=== PATIENT | male | born 1955 | race Two or more races ===

== ENCOUNTER → 2016-12-26 | Outpatient (REF) | payer MEDICAID | LOC: M SFHCADAM 14:30 | PROVIDERS: ATTEND Family Medicine | DX: J69.0 Pneumonitis due to inhalation of food and vomit (principal); I95.2 Hypotension due to drugs; R63.4 Abnormal weight loss ==

== ENCOUNTER → 2016-12-27 | Outpatient (CLI) | payer MEDICAID ==
[~2016-12-27] MED LIST: ISOVUE-370 76% 100ML VIAL (Q9967) As Ordered ONE
[2016-12-27 11:31] LABS: MEAN CORPUSCULAR HEMOGLOBIN 31.9 pg (27.0-33.0); MEAN CORPUSCULAR VOLUME 93.7 fl (80.0-96.0); RED CELL DISTRIBUTION WIDTH 14.7 % (11.5-14.5); WHITE BLOOD COUNT 4.6 K/mm3 (4.0-10.0)
[2016-12-27 11:59] LABS: CORTISOL AM 8.7 UG/DL (4.3-22.4)
[2016-12-27 12:06] LABS: BLOOD UREA NITROGEN 6 MG/DL (7-18); CREATININE FOR GFR 0.89 MG/DL (0.70-1.30); GLUCOSE, FASTING 77 MG/DL (80-110)
[2016-12-27 12:07] LABS: ALBUMIN 3.1 GM/DL (3.2-5.2); ALBUMIN/GLOBULIN RATIO 0.94 (1.00-1.93); ALKALINE PHOSPHATASE 52 U/L (45-117); ALT/SGPT 16 U/L (12-78); ANION GAP 7 MEQ/L (8-16); AST/SGOT 13 U/L (15-37); BILIRUBIN,TOTAL 0.2 MG/DL (0.2-1.0); CALCIUM LEVEL 8.8 MG/DL (8.8-10.2); CARBON DIOXIDE LEVEL 29 MEQ/L (21-32); CHLORIDE LEVEL 104 MEQ/L (98-107); FREE T4 0.77 NG/DL (0.76-1.46); GLOMERULAR FILTRATION RATE > 60.0 (>49); POTASSIUM SERUM 4.7 MEQ/L (3.5-5.1); SODIUM LEVEL 140 MEQ/L (136-145); TOTAL PROTEIN 6.4 GM/DL (6.4-8.2)
--- NOTE | 2016-12-27 13:11 | REP ---
CT of the chest with IV contrast for aspiration pneumonia: There are no comparison studies. There are no focal infiltrates that would indicate aspiration. There are several contiguous lung nodules posteriorly in the right upper lobe measuring eight - 11 mm in size. No other lung nodules or masses are identified. No pleural effusions. There is dependent atelectasis in the posterior lung escobar inferiorly. There is a air in the lumen of the mid and upper esophagus. This is nonspecific but may in the appropriate clinical context could represent obstruction or partial obstruction of the distal esophagus. Additionally there is a 1.9 cm soft tissue mass-like density in the subcarinal zone, nonspecific. This could represent subcarinal nodes or esophageal mass. Barium esophagram might be considered for followup evaluation. There is no other mediastinal adenopathy. There is no hilar adenopathy. No axillary adenopathy. The thoracic aorta is unremarkable. Cardiac size is normal. There is no pericardial effusion. In the upper abdomen the visualized portions of the liver, gallbladder, pancreas and spleen are unremarkable except for two nonspecific 1 cm diameter low density lesions in the left lobe of the liver., likely hepatic cysts. Impression: No evidence of aspiration. There are several confluent nodular densities posteriorly in the right upper lobe concerning for neoplasm. There is air in the mid and upper esophagus. This is nonspecific but in the appropriate clinical context can suggest obstruction or partial obstruction of the mid and distal esophagus. There is a soft tissue density in the subcarinal area which could represent adenopathy or possibly an esophageal mass. Consider barium esophagram for further evaluation. Signed by Jean Pierre Casper MD 12/27/2016 01:02 P
== END ==
LOC: M LAB 10:28 → M RAD 10:28
PROVIDERS: ATTEND Family Medicine
DX: R91.8 Other nonspecific abnormal finding of lung field (principal); J69.0 Pneumonitis due to inhalation of food and vomit; I95.2 Hypotension due to drugs; R63.4 Abnormal weight loss
CPT/HCPCS: 36415; 71260; 80053; 82533; 84439; 84443; 85027; Q9967

== ENCOUNTER → 2017-01-23 | Outpatient (CLI) | payer MEDICAID ==
[~2017-01-23] MED LIST changes: +E-Z-GAS II EFFERVESCENT PACKET (SODIUM BICARB./CITRIC ACID/SIMETHICONE) As Ordered ONE; +E-Z-HD 98% w/w 340GM SUSP BTL As Ordered ONE; +E-Z-PAQUE 96% w/w SUSP 176GM BTL As Ordered ONE; -ISOVUE-370 76% 100ML VIAL (Q9967) As Ordered ONE
--- NOTE | 2017-01-23 18:58 | REP ---
ESOPHAGUS: The procedure was performed by KAITLIN Tamayo under the direct supervision of Dr. Oconnor. All imaging was reviewed with Dr. Oconnor prior to dictation. The patient was able to ingest liquid barium in order to evaluate the swallowing mechanism. Significant penetration was seen on the first swallows of barium. Procedure was terminated after this was seen. Recommend a swallowing evaluation with speech pathology. Fluoroscopy time was 23 seconds. Reviewed by KAITLIN Chang 01/24/2017 10:47 AEdited and Signed by Jean Pierre Oconnor MD 01/24/2017 04:35 P
== END ==
LOC: M RAD 09:28
PROVIDERS: ATTEND Family Medicine
DX: R13.10 Dysphagia, unspecified (principal)

== ENCOUNTER 2021-04-18 22:02 | Inpatient (IN) | payer MEDICARE, MEDICAID, OTHER ==
[~2021-04-18] VITALS: Ht 152.4 cm; Wt 65.2 kg
[2021-04-19] VITALS (84 sets, daily range): BP systolic 65–182; BP diastolic 33–71
[2021-04-19] MEDS ORDERED: NS 1,000 ML IV ONE ×2 (03:35→06:30)
[2021-04-19 03:50] LABS: HEMATOCRIT 37.6 % (42.0-52.0); HEMOGLOBIN 11.8 g/dl (13.5-17.5); MEAN CORPUSCULAR HEMOGLOBIN 28.1 pg (27.0-33.0); MEAN CORPUSCULAR HGB CONC 31.4 g/dl (32.0-36.5); MEAN CORPUSCULAR VOLUME 89.5 fl (80.0-96.0); PLATELET COUNT, AUTOMATED 149 10^3/uL (150-450); WHITE BLOOD COUNT 11.6 10^3/uL (4.0-10.0)
[2021-04-19] MEDS ORDERED: PIPERACILLIN/TAZOBACTAM SOD 3.375 GM in D5W MINI-BAG PLUS 50 ML IV ONE (04:10)
[2021-04-19 04:16] LABS: ALBUMIN 2.3 GM/DL (3.2-5.2); ALT/SGPT 13 U/L (12-78); BILIRUBIN,DIRECT < 0.1 MG/DL (0.0-0.2); BILIRUBIN,TOTAL 0.3 MG/DL (0.2-1.0); BLOOD UREA NITROGEN 17 MG/DL (7-18); CALCIUM LEVEL 9.2 MG/DL (8.8-10.2); CARBON DIOXIDE LEVEL 23 MEQ/L (21-32); CHLORIDE LEVEL 105 MEQ/L (98-107); CK-MB VALUE MASS 8.7 NG/ML (<3.6); CREATININE FOR GFR 2.57 MG/DL (0.70-1.30); GLOMERULAR FILTRATION RATE 26.7 (>49); GLUCOSE, FASTING 124 MG/DL (70-100); MB/CK RELATIVE INDEX 1.83 (< OR =4); NT-PRO BNP 8637 PG/ML (<125); POTASSIUM SERUM 4.2 MEQ/L (3.5-5.1); SODIUM LEVEL 141 MEQ/L (136-145); TOTAL PROTEIN 6.3 GM/DL (6.4-8.2); TROPONIN I 0.04 NG/ML (< 0.10); VALPROIC ACID (DEPAKOTE) 70.8 UG/ML (50.0-100.0)
[2021-04-19 04:26] LABS: LYMPHOCYTES 14 % (16-44); METAMYELOCYTES 2 % (0-0); MONOCYTES 5 % (0-5); NEUTROPHILS 64 % (28-66); PLATELET ESTIMATE NORMAL (NORMAL)
[2021-04-19] MEDS ORDERED: KETAMINE HCL 200 MG/20 ML VIAL IV ONE (05:40)
[2021-04-19] MEDS ORDERED: NOREPINEPHRINE BITARTRATE 8 MG in D5W 492 ML IV SCH (06:15)
[2021-04-19 06:39] LABS: VENOUS BASE EXCESS -6.7 (-2.0-2.0); VENOUS HCO3 20.7 MEQ/L (23.0-27.0); VENOUS PARTIAL PRESSURE CO2 49.5 mmHg (38.0-50.0); VENOUS STANDARD HCO3 18.3 MEQ/L; VENOUS TOTAL CO2 22.3 MEQ/L (24.0-28.0)
[2021-04-19] MEDS ORDERED: MONT10TA97 PO (07:17)
[2021-04-19] MEDS ORDERED: DEPA1TAB3 PO (07:17)
[2021-04-19] MEDS ORDERED: BACL10TA2 PO (07:17)
[2021-04-19] MEDS ORDERED: OMEP40CA4 PO (07:17)
[2021-04-19] MEDS ORDERED: LEVO75TA4 PO (07:17)
[2021-04-19] MEDS ORDERED: SENN-80 PO (07:17)
[2021-04-19] MEDS ORDERED: RISP-7 PO (07:17)
[2021-04-19] MEDS ORDERED: ACIDTAB4 PO (07:17)
[2021-04-19] MEDS ORDERED: ECOT81TA5 PO (07:17)
[2021-04-19] MEDS ORDERED: PARO20TA4 PO (07:17)
[2021-04-19] MEDS ORDERED: COMBAER6 INH (07:18)
[2021-04-19] MEDS ORDERED: HOME MED LIST COMPLETE! XX SCH (07:20)
[2021-04-19] MEDS ORDERED: DIVALPROEX 500 MG TAB PO SCH (09:00)
[2021-04-19 09:08] LABS: INR 1.26; PARTIAL THROMBOPLASTIN TIME 36.9 SECONDS (25.9-37.0); PROTHROMBIN TIME 16.2 SECONDS (12.7-14.5)
[2021-04-19 09:15] LABS: HEMATOCRIT 37.5 % (42.0-52.0); HEMOGLOBIN 11.6 g/dl (13.5-17.5); MEAN CORPUSCULAR HGB CONC 30.9 g/dl (32.0-36.5); MEAN CORPUSCULAR VOLUME 90.4 fl (80.0-96.0); PLATELET COUNT, AUTOMATED 171 10^3/uL (150-450); RED BLOOD COUNT 4.15 10^6/uL (4.30-6.10); WHITE BLOOD COUNT 4.3 10^3/uL (4.0-10.0)
[2021-04-19 09:28] LABS: CALCIUM LEVEL 8.3 MG/DL (8.8-10.2); CREATININE FOR GFR 2.41 MG/DL (0.70-1.30); GLOMERULAR FILTRATION RATE 28.8 (>49); POTASSIUM SERUM 3.7 MEQ/L (3.5-5.1)
[2021-04-19 09:32] LABS: ABG BASE EXCESS -9.5 (-2.0-2.0); ABG HCO3 16.4 MEQ/L (22.0-26.0); ABG O2 SATURATION 89.2 % (95.0-99.0); ABG PARTIAL PRESSURE CO2 35.7 mmHg (35.0-45.0); ABG PARTIAL PRESSURE O2 64.2 mmHg (75.0-100.0); ABG STANDARD HCO3 16.8 MEQ/L (22.0-26.0); ABG TOTAL CO2 17.5 MEQ/L (23.0-31.0)
[2021-04-19] MEDS ORDERED: FUROSEMIDE 100MG/10ML VIAL (J1940) IV ONE (10:00)
[2021-04-19 10:03] LABS: ATYPICAL LYMPH 2 % (0-5); LYMPHOCYTES 16 % (16-44); MONOCYTES 4 % (0-5); NEUTROPHILS 46 % (28-66); PLATELET CLUMPS MODERATE AMT; PLATELET ESTIMATE NORMAL (NORMAL)
[2021-04-19 10:06] LABS: TOXIC GRANULATION 1+
[2021-04-19 10:07] LABS: TOXIC VACUOLATION 1+
[2021-04-19 10:08] LABS: HYPOCHROMASIA 1+
[2021-04-19] MEDS ORDERED: MIDAZOLAM INJ 2MG/2ML VIAL (J2250 PER 1MG) As Ordered ONE (10:10)
[2021-04-19] MEDS ORDERED: ROCURONIUM BROMIDE 50 MG/5 ML VIAL As Ordered ONE (10:10)
[2021-04-19] MEDS ORDERED: ETOMIDATE INJ 20MG/10ML VIAL As Ordered ONE (10:10)
[2021-04-19] MEDS ORDERED: ROCURONIUM BROMIDE 50 MG/5 ML VIAL IV ONE (10:40)
[2021-04-19] MEDS ORDERED: ETOMIDATE INJ 20MG/10ML VIAL IV ONE (10:40)
[2021-04-19] MEDS ORDERED: MIDAZOLAM INJ 2MG/2ML VIAL (J2250 PER 1MG) IV ONE (10:40)
[2021-04-19] MEDS ORDERED: SENNA 8.6 MG TAB (SENOKOT) PO PRN (10:40)
[2021-04-19] MEDS ORDERED: REFRIGERATOR IV KEYS XX PRN (10:40)
[2021-04-19 11:30] LABS: ABG HCO3 15.8 MEQ/L (22.0-26.0); ABG O2 SATURATION 94.7 % (95.0-99.0); ABG PARTIAL PRESSURE CO2 42.9 mmHg (35.0-45.0); ABG STANDARD HCO3 15.1 MEQ/L (22.0-26.0); ABG TOTAL CO2 17.1 MEQ/L (23.0-31.0)
[2021-04-19] MEDS: HEPARIN SOD (PORCINE) 5000UNITS/ML 1ML VIAL/SYRINGE SC SCH ×2 (11:33→20:53)
[2021-04-19 11:34] LABS: ABG pH (ARTERIAL) 7.184 UNITS (7.350-7.450)
[2021-04-19] MEDS: NOREPINEPHRINE BITARTRATE 16 MG in D5W 484 ML IV SCH (11:43)
[2021-04-19] MEDS: MIDAZOLAM INJ 2MG/2ML VIAL (J2250 PER 1MG) IV PRN ×2 (12:03→12:56)
[2021-04-19] MEDS: MIDAZOLAM HCL 100 MG in D5W 80 ML IV SCH (12:50)
[2021-04-19] MEDS: fentaNYL 100 MCG/2 ML INJECTION IV PRN (13:20)
[2021-04-19] MEDS ORDERED: VALPROATE SOD INJ 500 MG in D5W MINI-BAG PLUS 50 ML IV SCH (14:00)
[2021-04-19 14:22] LABS: COMPLEMENT C3 93 MG/DL (90-180); COMPLEMENT C4 21 MG/DL (10-40); TOTAL PROTEIN 5.6 GM/DL (6.4-8.2)
[2021-04-19] MEDS: PARoxetine 20MG TABLET NG SCH (14:33)
[2021-04-19] MEDS: risperiDONE 0.5 MG TAB NG SCH ×2 (14:34→20:52)
[2021-04-19] MEDS: PANTOPRAZOLE 40MG VIAL (C9113 PER 1) IV SCH (14:34)
[2021-04-19] MEDS: PIPERACILLIN/TAZOBACTAM SOD 2.25 GM in D5W MINI-BAG PLUS 50 ML IV SCH ×2 (14:34→18:56)
[2021-04-19] MEDS: VASOPRESSIN INJ 20 UNITS in NS 499 ML IV SCH ×2 (15:02→22:37)
[2021-04-19 17:41] LABS: CALCIUM LEVEL 8.8 MG/DL (8.8-10.2); CREATININE FOR GFR 2.53 MG/DL (0.70-1.30); GLOMERULAR FILTRATION RATE 27.2 (>49); POTASSIUM SERUM 3.6 MEQ/L (3.5-5.1)
[2021-04-19] MEDS: VALPROATE SOD INJ 500 MG in D5W 50 ML IV SCH (18:55)
[2021-04-19 18:56] LABS: ABG BASE EXCESS -11.5 (-2.0-2.0); ABG HCO3 14.5 MEQ/L (22.0-26.0); ABG O2 SATURATION 89.9 % (95.0-99.0); ABG PARTIAL PRESSURE O2 64.9 mmHg (75.0-100.0); ABG STANDARD HCO3 15.3 MEQ/L (22.0-26.0); ABG TOTAL CO2 15.5 MEQ/L (23.0-31.0)
[2021-04-19] MEDS: HYDROCORTISONE 100 MG/2 ML VIAL (J1720 PER 1) IV SCH ×2 (18:56→20:52)
[2021-04-19] MEDS ORDERED: PHENYLEPHRINE HCL INJ 50 MG in D5W 495 ML IV SCH (19:00)
[2021-04-19] MEDS: HEPARIN 100 UNIT/ML *20ML* SYRINGE CRRT INFUSION CRRT SCH (19:24)
[2021-04-19 19:36] LABS: HEPATITIS B CORE ANTIBODY IGM NEGATIVE (NEGATIVE); HEPATITIS B SURFACE ANTIBODY POSITIVE (POSITIVE); HEPATITIS B SURFACE ANTIGEN NEGATIVE (NEGATIVE); HEPATITIS C VIRUS ABY INDEX 0.1 INDEX (<0.8)
[2021-04-19] MEDS: CHLORHEXIDINE GLUCONATE 0.12 % 15ML UDC (PERIDEX ORAL RINSE) MT SCH (20:52)
[2021-04-19] MEDS ORDERED: EPINEPHrine HCL INJ 1 MG in D5W 240 ML IV SCH (22:00)
[2021-04-20] VITALS (95 sets, daily range): BP systolic 66–204; BP diastolic 26–78
[2021-04-20] MEDS: HEPARIN 100 UNIT/ML *20ML* SYRINGE CRRT INFUSION CRRT SCH ×4 (00:24→15:10)
[2021-04-20] MEDS: PIPERACILLIN/TAZOBACTAM SOD 2.25 GM in D5W MINI-BAG PLUS 50 ML IV SCH ×4 (00:35→18:08)
[2021-04-20] MEDS ORDERED: SODIUM CHLORIDE 0.9% INJ 10 ML SYR IV PRN (01:20)
[2021-04-20] MEDS: HYDROCORTISONE 100 MG/2 ML VIAL (J1720 PER 1) IV SCH ×4 (03:06→21:18)
[2021-04-20] MEDS: VALPROATE SOD INJ 500 MG in D5W 50 ML IV SCH ×2 (03:07→17:07)
[2021-04-20 04:30] LABS: HEMATOCRIT 35.1 % (42.0-52.0); HEMOGLOBIN 10.7 g/dl (13.5-17.5); MEAN CORPUSCULAR HGB CONC 30.5 g/dl (32.0-36.5); MEAN CORPUSCULAR VOLUME 91.9 fl (80.0-96.0); PLATELET COUNT, AUTOMATED 127 10^3/uL (150-450); RED BLOOD COUNT 3.82 10^6/uL (4.30-6.10)
[2021-04-20] MEDS: NOREPINEPHRINE BITARTRATE 16 MG in D5W 484 ML IV SCH ×2 (04:44→16:56)
[2021-04-20 04:49] LABS: CALCIUM LEVEL 7.6 MG/DL (8.8-10.2); CREATININE FOR GFR 1.82 MG/DL (0.70-1.30); GLOMERULAR FILTRATION RATE 39.8 (>49); MAGNESIUM LEVEL 1.7 MG/DL (1.8-2.4); PHOSPHORUS LEVEL 4.2 MG/DL (2.5-4.9); POTASSIUM SERUM 3.9 MEQ/L (3.5-5.1)
[2021-04-20] MEDS: LEVOTHYROXINE 75MCG TABLET (0.075MG) NG SCH (05:23)
[2021-04-20] MEDS: CALCIUM GLUCONATE 1,000 MG in D5W MINI-BAG PLUS 100 ML IV SCH ×4 (05:23→21:19)
[2021-04-20 06:10] LABS: ABG BASE EXCESS -13.7 (-2.0-2.0); ABG HCO3 13.8 MEQ/L (22.0-26.0); ABG O2 SATURATION 98.9 % (95.0-99.0); ABG PARTIAL PRESSURE CO2 38.3 mmHg (35.0-45.0); ABG PARTIAL PRESSURE O2 167.7 mmHg (75.0-100.0); ABG STANDARD HCO3 13.9 MEQ/L (22.0-26.0)
[2021-04-20 06:14] LABS: ABG pH (ARTERIAL) 7.176 UNITS (7.350-7.450)
[2021-04-20] MEDS: VASOPRESSIN INJ 20 UNITS in NS 499 ML IV SCH ×3 (06:16→21:54)
[2021-04-20] MEDS ORDERED: MAG SULF 1GM/100ML (MAG RUN) 1 GM in IV 1 EA IV ONE (07:00)
[2021-04-20] MEDS ORDERED: KCL 20MEQ IN 100ML SWI (KRUN) 20 MEQ in IV 1 EA IV ONE ×2 (08:00)
[2021-04-20] MEDS: risperiDONE 0.5 MG TAB NG SCH ×2 (08:04→21:18)
[2021-04-20] MEDS: PANTOPRAZOLE 40MG VIAL (C9113 PER 1) IV SCH (08:04)
[2021-04-20] MEDS: CHLORHEXIDINE GLUCONATE 0.12 % 15ML UDC (PERIDEX ORAL RINSE) MT SCH ×2 (08:04→21:18)
[2021-04-20] MEDS: PARoxetine 20MG TABLET NG SCH (09:00)
[2021-04-20] MEDS: MIDAZOLAM HCL 100 MG in D5W 80 ML IV SCH (10:42)
[2021-04-20] MEDS ORDERED: SODIUM BICARBONATE 150 MEQ in D5W 1,000 ML IV SCH (11:00)
[2021-04-20 18:07] LABS: HEMATOCRIT 31.6 % (42.0-52.0); MEAN CORPUSCULAR HEMOGLOBIN 27.7 pg (27.0-33.0); MEAN CORPUSCULAR HGB CONC 31.6 g/dl (32.0-36.5); MEAN CORPUSCULAR VOLUME 87.5 fl (80.0-96.0); RED BLOOD COUNT 3.61 10^6/uL (4.30-6.10); WHITE BLOOD COUNT 11.6 10^3/uL (4.0-10.0)
[2021-04-20 18:23] LABS: INR 1.41; PROTHROMBIN TIME 17.7 SECONDS (12.7-14.5)
[2021-04-20 18:24] LABS: BLOOD UREA NITROGEN 9 MG/DL (7-18); CALCIUM LEVEL 7.4 MG/DL (8.8-10.2); CARBON DIOXIDE LEVEL 22 MEQ/L (21-32); CHLORIDE LEVEL 102 MEQ/L (98-107); CREATININE FOR GFR 0.86 MG/DL (0.70-1.30); GLOMERULAR FILTRATION RATE > 60.0 (>49); GLUCOSE, FASTING 202 MG/DL (70-100); PARTIAL THROMBOPLASTIN TIME 63.8 SECONDS (25.9-37.0); PHOSPHORUS LEVEL 2.2 MG/DL (2.5-4.9); POTASSIUM SERUM 4.1 MEQ/L (3.5-5.1); SODIUM LEVEL 136 MEQ/L (136-145)
[2021-04-20 18:55] LABS: PLATELET COUNT, AUTOMATED 80 10^3/uL (150-450)
[2021-04-20] MEDS ORDERED: HEPARIN 100 UNIT/ML *20ML* SYRINGE CRRT INFUSION CRRT SCH (19:00)
[2021-04-20] MEDS: NS 1,000 ML IV SCH (19:18)
[2021-04-20] MEDS: fentaNYL 100 MCG/2 ML INJECTION IV PRN (20:11)
[2021-04-21] VITALS (55 sets, daily range): BP systolic 86–129; BP diastolic 44–71
[2021-04-21] MEDS: VALPROATE SOD INJ 500 MG in D5W 50 ML IV SCH ×2 (03:49→15:18)
[2021-04-21] MEDS: HYDROCORTISONE 100 MG/2 ML VIAL (J1720 PER 1) IV SCH ×4 (03:49→20:54)
[2021-04-21] MEDS: MIDAZOLAM INJ 2MG/2ML VIAL (J2250 PER 1MG) IV PRN (04:02)
[2021-04-21 04:54] LABS: HEMATOCRIT 26.4 % (42.0-52.0); HEMOGLOBIN 8.6 g/dl (13.5-17.5); MEAN CORPUSCULAR HEMOGLOBIN 28.2 pg (27.0-33.0); MEAN CORPUSCULAR HGB CONC 32.6 g/dl (32.0-36.5); MEAN CORPUSCULAR VOLUME 86.6 fl (80.0-96.0); RED BLOOD COUNT 3.05 10^6/uL (4.30-6.10); WHITE BLOOD COUNT 12.9 10^3/uL (4.0-10.0)
[2021-04-21 04:59] LABS: PLATELET COUNT, AUTOMATED 60 10^3/uL (150-450)
[2021-04-21 05:13] LABS: BLOOD UREA NITROGEN 9 MG/DL (7-18); CALCIUM LEVEL 7.6 MG/DL (8.8-10.2); CARBON DIOXIDE LEVEL 23 MEQ/L (21-32); CHLORIDE LEVEL 105 MEQ/L (98-107); CREATININE FOR GFR 0.88 MG/DL (0.70-1.30); GLOMERULAR FILTRATION RATE > 60.0 (>49); GLUCOSE, FASTING 164 MG/DL (70-100); MAGNESIUM LEVEL 1.6 MG/DL (1.8-2.4); PHOSPHORUS LEVEL 1.4 MG/DL (2.5-4.9); POTASSIUM SERUM 4.5 MEQ/L (3.5-5.1); SODIUM LEVEL 136 MEQ/L (136-145)
[2021-04-21] MEDS: PIPERACILLIN/TAZOBACTAM SOD 2.25 GM in D5W MINI-BAG PLUS 50 ML IV SCH ×3 (05:46)
[2021-04-21] MEDS: fentaNYL 100 MCG/2 ML INJECTION IV PRN (05:46)
[2021-04-21] MEDS: LEVOTHYROXINE 75MCG TABLET (0.075MG) NG SCH (05:46)
[2021-04-21 06:02] LABS: ABG BASE EXCESS -2.6 (-2.0-2.0); ABG HCO3 20.7 MEQ/L (22.0-26.0); ABG O2 SATURATION 93.9 % (95.0-99.0); ABG PARTIAL PRESSURE CO2 30.4 mmHg (35.0-45.0); ABG STANDARD HCO3 22.3 MEQ/L (22.0-26.0); ABG TOTAL CO2 21.7 MEQ/L (23.0-31.0); ABG pH (ARTERIAL) 7.452 UNITS (7.350-7.450)
[2021-04-21] MEDS ORDERED: MIDAZOLAM HCL 100 MG in D5W 80 ML IV SCH (06:20)
[2021-04-21] MEDS: MIDAZOLAM HCL 100 MG in D5W 80 ML IV SCH (07:24)
[2021-04-21] MEDS: NOREPINEPHRINE BITARTRATE 16 MG in D5W 484 ML IV SCH ×2 (08:50→08:55)
[2021-04-21] MEDS: PANTOPRAZOLE 40MG VIAL (C9113 PER 1) IV SCH (08:51)
[2021-04-21] MEDS: CHLORHEXIDINE GLUCONATE 0.12 % 15ML UDC (PERIDEX ORAL RINSE) MT SCH ×2 (08:52→20:53)
[2021-04-21] MEDS: risperiDONE 0.5 MG TAB NG SCH ×2 (08:54→20:56)
[2021-04-21 09:27] LABS: BASOPHILS 1 % (0-1); LYMPHOCYTES 8 % (16-44); MONOCYTES 12 % (0-5); NEUTROPHILS 65 % (28-66)
[2021-04-21 09:28] LABS: TOXIC GRANULATION 2+; TOXIC VACUOLATION 2+
[2021-04-21 09:29] LABS: ANISOCYTOSIS 1+; HYPOCHROMASIA 2+; PLATELET ESTIMATE MARKED DECREASE (NORMAL)
[2021-04-21] MEDS ORDERED: MAG SULF 1GM/100ML (MAG RUN) 1 GM in IV 1 EA IV ONE ×2 (11:00→12:00)
[2021-04-21 11:52] LABS: ALBUMIN 2.65 GM/DL (3.29-5.55); ALBUMIN % 47.4 % (55.8-66.1); ALPHA-1-GLOBULIN % 7.2 % (2.9-4.9); ALPHA-2-GLOBULINS % 10.8 % (7.1-11.8); BETA-1-GLOBULINS 0.42 GM/DL (0.28-0.60); BETA-1-GLOBULINS % 7.5 % (4.7-7.2); BETA-2-GLOBULINS 0.36 GM/DL (0.19-0.55); BETA-2-GLOBULINS % 6.4 % (3.2-6.5); GAMMA GLOBULIN % 20.7 % (11.1-18.8); GAMMA GLOBULINS 1.16 GM/DL (0.65-1.58)
[2021-04-21] MEDS ORDERED: cefTRIAXone SOD 2 GM in D5W MINI-BAG PLUS 50 ML IV SCH (12:00)
[2021-04-21] MEDS: VASOPRESSIN INJ 20 UNITS in NS 499 ML IV SCH ×2 (13:56→21:30)
[2021-04-21] MEDS: NS 1,000 ML IV SCH (13:57)
[2021-04-21] MEDS: PARoxetine 10MG 5ML SUSP ORAL SYRINGE *DRAW UP EXACT DOSE NG SCH (15:19)
[2021-04-21] MEDS: HumaLOG INSULIN (NovoLOG) PER UNIT SC SCH ×2 (18:31→23:39)
[2021-04-21] MEDS ORDERED: FUROSEMIDE 40MG/4ML VIAL (J1940) IV ONE (19:35)
[2021-04-21] MEDS: HEPARIN SOD (PORCINE) 5000UNITS/ML 1ML VIAL/SYRINGE SQ SCH (20:56)
[2021-04-22] VITALS (46 sets, daily range): BP systolic 82–108; BP diastolic 45–68
[2021-04-22] MEDS: VALPROATE SOD INJ 500 MG in D5W 50 ML IV SCH ×2 (03:55→17:46)
[2021-04-22] MEDS: HYDROCORTISONE 100 MG/2 ML VIAL (J1720 PER 1) IV SCH ×4 (03:55→20:51)
[2021-04-22 05:43] LABS: HEMATOCRIT 24.3 % (42.0-52.0); HEMOGLOBIN 7.9 g/dl (13.5-17.5); MEAN CORPUSCULAR HEMOGLOBIN 27.8 pg (27.0-33.0); MEAN CORPUSCULAR HGB CONC 32.5 g/dl (32.0-36.5); MEAN CORPUSCULAR VOLUME 85.6 fl (80.0-96.0); RED BLOOD COUNT 2.84 10^6/uL (4.30-6.10); WHITE BLOOD COUNT 14.8 10^3/uL (4.0-10.0)
[2021-04-22] MEDS: HumaLOG INSULIN (NovoLOG) PER UNIT SC SCH ×3 (05:51→18:33)
[2021-04-22] MEDS: VASOPRESSIN INJ 20 UNITS in NS 499 ML IV SCH (05:51)
[2021-04-22 05:52] LABS: ABG BASE EXCESS 2.1 (-2.0-2.0); ABG HCO3 25.7 MEQ/L (22.0-26.0); ABG O2 SATURATION 99.3 % (95.0-99.0); ABG PARTIAL PRESSURE CO2 35.4 mmHg (35.0-45.0); ABG PARTIAL PRESSURE O2 151.3 mmHg (75.0-100.0); ABG STANDARD HCO3 26.4 MEQ/L (22.0-26.0); ABG TOTAL CO2 26.7 MEQ/L (23.0-31.0); ABG pH (ARTERIAL) 7.478 UNITS (7.350-7.450)
[2021-04-22] MEDS: LEVOTHYROXINE 75MCG TABLET (0.075MG) NG SCH (05:52)
[2021-04-22 05:57] LABS: BLOOD UREA NITROGEN 21 MG/DL (7-18); CALCIUM LEVEL 7.3 MG/DL (8.8-10.2); CARBON DIOXIDE LEVEL 29 MEQ/L (21-32); CHLORIDE LEVEL 105 MEQ/L (98-107); CREATININE FOR GFR 0.89 MG/DL (0.70-1.30); GLOMERULAR FILTRATION RATE > 60.0 (>49); GLUCOSE, FASTING 142 MG/DL (70-100); POTASSIUM SERUM 3.3 MEQ/L (3.5-5.1); SODIUM LEVEL 140 MEQ/L (136-145)
[2021-04-22 06:04] LABS: PLATELET COUNT, AUTOMATED 32 10^3/uL (150-450)
[2021-04-22 06:09] LABS: ANISOCYTOSIS 2+; LYMPHOCYTES 6 % (16-44); MONOCYTES 10 % (0-5); NEUTROPHILS 81 % (28-66); PLATELET ESTIMATE MARKED DECREASE (NORMAL); TOXIC VACUOLATION 1+
[2021-04-22] MEDS ORDERED: POTASSIUM CHLORIDE 10% LIQ 20 MEQ/15 ML UDC NG ONE (09:10)
[2021-04-22] MEDS ORDERED: TOBRAMYCIN SULF 100 MG in D5W 50 ML IV SCH (09:55)
[2021-04-22] MEDS: PANTOPRAZOLE 40MG VIAL (C9113 PER 1) IV SCH (10:18)
[2021-04-22] MEDS: HEPARIN SOD (PORCINE) 5000UNITS/ML 1ML VIAL/SYRINGE SQ SCH (10:19)
[2021-04-22] MEDS: CHLORHEXIDINE GLUCONATE 0.12 % 15ML UDC (PERIDEX ORAL RINSE) MT SCH ×2 (10:20→20:52)
[2021-04-22] MEDS: risperiDONE 0.5 MG TAB NG SCH ×2 (10:20→20:51)
[2021-04-22] MEDS ORDERED: PIPERACILLIN/TAZOBACTAM SOD 3.375 GM in D5W MINI-BAG PLUS 50 ML IV SCH (11:00)
[2021-04-22] MEDS: PARoxetine 10MG 5ML SUSP ORAL SYRINGE *DRAW UP EXACT DOSE NG SCH (11:13)
[2021-04-22] MEDS: METOCLOPRAMIDE INJ 10MG/2ML VIAL (J2765 PER 1) IV SCH ×2 (11:13→17:46)
[2021-04-22] MEDS: MEROPENEM INJ 1 GM in IV 1 EA IV SCH ×2 (14:34→20:51)
[2021-04-22 15:07] LABS: ANA (HEP2) Positive (.); ANTI DS-DNA AB Negative (Negative); ANTI-GLOMERULAR BASEMENT MEMB 4 units (0-20); FREE KAPPA LIGHT CHAINS SERUM 58.7 mg/L (3.3-19.4); FREE LAMBDA LIGHT CHAINS SERUM 30.8 mg/L (5.7-26.3); KAPPA/LAMBDA RATIO SERUM 1.91 (0.26-1.65)
[2021-04-22] MEDS ORDERED: LIDOCAINE 1% MDV 20ML VIAL As Ordered ONE (16:20)
[2021-04-22] MEDS ORDERED: SODIUM CHLORIDE 0.9% INJ 10 ML SYR IV PRN (17:40)
[2021-04-22] MEDS: AZITHROMYCIN INJ 500 MG, VIAL MATE ADAPTER 1 EACH in NS 250 ML IV SCH (17:46)
[2021-04-22] MEDS: fentaNYL 100 MCG/2 ML INJECTION IV PRN (17:51)
[2021-04-22] MEDS: SODIUM CHLORIDE 0.9% INJ 10 ML SYR IV SCH (18:00)
[2021-04-22 18:05] LABS: HEMATOCRIT 31.1 % (42.0-52.0); HEMOGLOBIN 10.1 g/dl (13.5-17.5); MEAN CORPUSCULAR HEMOGLOBIN 27.9 pg (27.0-33.0); MEAN CORPUSCULAR HGB CONC 32.5 g/dl (32.0-36.5); MEAN CORPUSCULAR VOLUME 85.9 fl (80.0-96.0); RED BLOOD COUNT 3.62 10^6/uL (4.30-6.10); WHITE BLOOD COUNT 14.6 10^3/uL (4.0-10.0)
[2021-04-22 18:07] LABS: PLATELET COUNT, AUTOMATED 24 10^3/uL (150-450)
[2021-04-22 19:33] LABS: ANISOCYTOSIS 1+; LYMPHOCYTES 3 % (16-44); MONOCYTES 8 % (0-5); NEUTROPHILS 84 % (28-66)
[2021-04-22 19:34] LABS: PLATELET ESTIMATE MARKED DECREASE (NORMAL)
[2021-04-22 19:35] LABS: TOXIC VACUOLATION 1+
[2021-04-23] VITALS (36 sets, daily range): BP systolic 69–122; BP diastolic 47–74
[2021-04-23] MEDS: METOCLOPRAMIDE INJ 10MG/2ML VIAL (J2765 PER 1) IV SCH ×5 (00:13→23:20)
[2021-04-23] MEDS: fentaNYL 100 MCG/2 ML INJECTION IV PRN ×6 (00:44→20:21)
[2021-04-23 01:12] LABS: PLATELET COUNT, AUTOMATED 22 10^3/uL (150-450)
[2021-04-23] MEDS: MIDAZOLAM INJ 2MG/2ML VIAL (J2250 PER 1MG) IV PRN ×6 (02:51→14:53)
[2021-04-23] MEDS: HYDROCORTISONE 100 MG/2 ML VIAL (J1720 PER 1) IV SCH ×4 (03:37→21:06)
[2021-04-23] MEDS: VALPROATE SOD INJ 500 MG in D5W 50 ML IV SCH ×2 (03:37→17:11)
[2021-04-23 05:25] LABS: HEMATOCRIT 29.1 % (42.0-52.0); HEMOGLOBIN 9.5 g/dl (13.5-17.5); MEAN CORPUSCULAR HEMOGLOBIN 27.9 pg (27.0-33.0); MEAN CORPUSCULAR HGB CONC 32.6 g/dl (32.0-36.5); MEAN CORPUSCULAR VOLUME 85.6 fl (80.0-96.0); WHITE BLOOD COUNT 12.7 10^3/uL (4.0-10.0)
[2021-04-23 05:40] LABS: PLATELET COUNT, AUTOMATED 20 10^3/uL (150-450)
[2021-04-23 05:55] LABS: LYMPHOCYTES 3 % (16-44); METAMYELOCYTES 1 % (0-0); MONOCYTES 3 % (0-5); NEUTROPHILS 89 % (28-66)
[2021-04-23 05:56] LABS: ANISOCYTOSIS 2+; PLATELET ESTIMATE MARKED DECREASE (NORMAL); TOXIC VACUOLATION 1+
[2021-04-23 05:57] LABS: BLOOD UREA NITROGEN 25 MG/DL (7-18); CALCIUM LEVEL 7.6 MG/DL (8.8-10.2); CARBON DIOXIDE LEVEL 28 MEQ/L (21-32); CHLORIDE LEVEL 110 MEQ/L (98-107); GLOMERULAR FILTRATION RATE > 60.0 (>49); GLUCOSE, FASTING 151 MG/DL (70-100); POTASSIUM SERUM 3.5 MEQ/L (3.5-5.1); SODIUM LEVEL 144 MEQ/L (136-145)
[2021-04-23] MEDS: SODIUM CHLORIDE 0.9% INJ 10 ML SYR IV SCH ×2 (06:00→17:12)
[2021-04-23] MEDS: LEVOTHYROXINE 75MCG TABLET (0.075MG) NG SCH (06:14)
[2021-04-23] MEDS: HumaLOG INSULIN (NovoLOG) PER UNIT SC SCH ×5 (06:15→23:20)
[2021-04-23] MEDS: MEROPENEM INJ 1 GM in IV 1 EA IV SCH ×3 (06:15→21:06)
[2021-04-23] MEDS ORDERED: NS 500 ML IV ONE ×2 (07:15→09:10)
[2021-04-23 09:50] LABS: ABG BASE EXCESS 4.6 (-2.0-2.0); ABG HCO3 26.3 MEQ/L (22.0-26.0); ABG O2 SATURATION 97.2 % (95.0-99.0); ABG PARTIAL PRESSURE O2 87.8 mmHg (75.0-100.0); ABG STANDARD HCO3 28.6 MEQ/L (22.0-26.0); ABG TOTAL CO2 27.2 MEQ/L (23.0-31.0); ABG pH (ARTERIAL) 7.576 UNITS (7.350-7.450)
[2021-04-23] MEDS: CHLORHEXIDINE GLUCONATE 0.12 % 15ML UDC (PERIDEX ORAL RINSE) MT SCH ×2 (09:58→21:05)
[2021-04-23] MEDS: PARoxetine 10MG 5ML SUSP ORAL SYRINGE *DRAW UP EXACT DOSE NG SCH (09:58)
[2021-04-23] MEDS: PANTOPRAZOLE 40MG VIAL (C9113 PER 1) IV SCH (09:58)
[2021-04-23] MEDS: risperiDONE 0.5 MG TAB NG SCH ×2 (09:58→21:05)
[2021-04-23 10:09] LABS: BODY FLUID CULTURE Not indicated. (.); LEGIONELLA ANTIGEN URINE Negative (Negative); ORGANISM ID Not indicated. (.); SPECIMEN SOURCE Urine (.); URINE STREP PNEUMONIAE ANTIGEN Positive (Negative)
[2021-04-23] MEDS: propofoL 1,000 MG in IV 1 EA IV SCH (10:42)
[2021-04-23] MEDS: AZITHROMYCIN INJ 500 MG, VIAL MATE ADAPTER 1 EACH in NS 250 ML IV SCH (17:12)
[2021-04-23 20:43] LABS: MEAN CORPUSCULAR HEMOGLOBIN 29.2 pg (27.0-33.0); MEAN CORPUSCULAR HGB CONC 34.6 g/dl (32.0-36.5); MEAN CORPUSCULAR VOLUME 84.3 fl (80.0-96.0); RED BLOOD COUNT 4.39 10^6/uL (4.30-6.10); WHITE BLOOD COUNT 9.7 10^3/uL (4.0-10.0)
[2021-04-23 20:47] LABS: HEMOGLOBIN 12.8 g/dl (13.5-17.5); PLATELET COUNT, AUTOMATED 38 10^3/uL (150-450)
[2021-04-23 21:15] LABS: ANISOCYTOSIS 1+; LYMPHOCYTES 11 % (16-44); MONOCYTES 8 % (0-5); NEUTROPHILS 70 % (28-66); PLATELET ESTIMATE MARKED DECREASE (NORMAL)
[2021-04-24] VITALS (19 sets, daily range): BP systolic 103–145; BP diastolic 57–85
[2021-04-24] MEDS: propofoL 1,000 MG in IV 1 EA IV SCH ×3 (01:21→18:44)
[2021-04-24] MEDS: HYDROCORTISONE 100 MG/2 ML VIAL (J1720 PER 1) IV SCH ×3 (01:59→18:07)
[2021-04-24] MEDS: fentaNYL 100 MCG/2 ML INJECTION IV PRN ×3 (01:59→22:33)
[2021-04-24] MEDS: MIDAZOLAM INJ 2MG/2ML VIAL (J2250 PER 1MG) IV PRN ×4 (04:16→17:16)
[2021-04-24] MEDS: VALPROATE SOD INJ 500 MG in D5W 50 ML IV SCH ×2 (04:16→16:14)
[2021-04-24] MEDS: LEVOTHYROXINE 75MCG TABLET (0.075MG) NG SCH (05:27)
[2021-04-24] MEDS: METOCLOPRAMIDE INJ 10MG/2ML VIAL (J2765 PER 1) IV SCH ×4 (05:27→22:00)
[2021-04-24] MEDS: MEROPENEM INJ 1 GM in IV 1 EA IV SCH ×3 (05:28→22:00)
[2021-04-24 05:48] LABS: HEMATOCRIT 37.6 % (42.0-52.0); MEAN CORPUSCULAR HEMOGLOBIN 29.1 pg (27.0-33.0); MEAN CORPUSCULAR HGB CONC 34.6 g/dl (32.0-36.5); MEAN CORPUSCULAR VOLUME 84.3 fl (80.0-96.0); RED BLOOD COUNT 4.46 10^6/uL (4.30-6.10); WHITE BLOOD COUNT 9.6 10^3/uL (4.0-10.0)
[2021-04-24 05:52] LABS: PLATELET COUNT, AUTOMATED 41 10^3/uL (150-450)
[2021-04-24 06:05] LABS: ABG BASE EXCESS 1.4 (-2.0-2.0); ABG HCO3 21.3 MEQ/L (22.0-26.0); ABG O2 SATURATION 97.8 % (95.0-99.0); ABG PARTIAL PRESSURE CO2 22.6 mmHg (35.0-45.0); ABG PARTIAL PRESSURE O2 93.8 mmHg (75.0-100.0); ABG STANDARD HCO3 25.7 MEQ/L (22.0-26.0); ABG pH (ARTERIAL) 7.592 UNITS (7.350-7.450)
[2021-04-24 06:06] LABS: ALBUMIN 1.5 GM/DL (3.2-5.2); ALT/SGPT 18 U/L (12-78); BILIRUBIN,TOTAL 0.5 MG/DL (0.2-1.0); BLOOD UREA NITROGEN 30 MG/DL (7-18); CALCIUM LEVEL 7.5 MG/DL (8.8-10.2); CARBON DIOXIDE LEVEL 26 MEQ/L (21-32); CHLORIDE LEVEL 113 MEQ/L (98-107); CHOLESTEROL LEVEL 114 MG/DL (< 200); CPK CREATINE PHOSPHOKINASE 74 U/L (39-308); CREATININE FOR GFR 0.96 MG/DL (0.70-1.30); GLOMERULAR FILTRATION RATE > 60.0 (>49); GLUCOSE, FASTING 242 MG/DL (70-100); LDH LACTATE DEHYDROGENASE 254 U/L (87-241); PHOSPHORUS LEVEL 1.8 MG/DL (2.5-4.9); POTASSIUM SERUM 3.2 MEQ/L (3.5-5.1); SODIUM LEVEL 146 MEQ/L (136-145); TOTAL PROTEIN 4.7 GM/DL (6.4-8.2); TRIGLYCERIDES LEVEL 229 MG/DL (<150)
[2021-04-24] MEDS: HumaLOG INSULIN (NovoLOG) PER UNIT SC SCH ×3 (06:17→18:08)
[2021-04-24 06:31] LABS: ANISOCYTOSIS 1+; ATYPICAL LYMPH 1 % (0-5); LYMPHOCYTES 16 % (16-44); MONOCYTES 8 % (0-5); NEUTROPHILS 64 % (28-66); PLATELET ESTIMATE MARKED DECREASE (NORMAL)
[2021-04-24] MEDS ORDERED: POTASSIUM CHLORIDE 10MEQ SR TABLET PO ONE (10:00)
[2021-04-24] MEDS: PARoxetine 10MG 5ML SUSP ORAL SYRINGE *DRAW UP EXACT DOSE NG SCH (10:09)
[2021-04-24] MEDS: PANTOPRAZOLE 40MG VIAL (C9113 PER 1) IV SCH (10:10)
[2021-04-24] MEDS: risperiDONE 0.5 MG TAB NG SCH ×2 (10:10→22:00)
[2021-04-24] MEDS: CHLORHEXIDINE GLUCONATE 0.12 % 15ML UDC (PERIDEX ORAL RINSE) MT SCH ×2 (10:10→22:00)
[2021-04-24 10:42] LABS: ABG BASE EXCESS 3.3 (-2.0-2.0); ABG HCO3 24.2 MEQ/L (22.0-26.0); ABG O2 SATURATION 97.2 % (95.0-99.0); ABG PARTIAL PRESSURE CO2 26.9 mmHg (35.0-45.0); ABG PARTIAL PRESSURE O2 84.6 mmHg (75.0-100.0); ABG STANDARD HCO3 27.4 MEQ/L (22.0-26.0); ABG pH (ARTERIAL) 7.572 UNITS (7.350-7.450)
[2021-04-24] MEDS ORDERED: POTASSIUM CHLORIDE 10% LIQ 20 MEQ/15 ML UDC NG ONE (11:00)
[2021-04-24] MEDS: AZITHROMYCIN INJ 500 MG, VIAL MATE ADAPTER 1 EACH in NS 250 ML IV SCH (16:13)
[2021-04-25] VITALS (15 sets, daily range): BP systolic 99–142; BP diastolic 55–84
[2021-04-25] MEDS: MIDAZOLAM INJ 2MG/2ML VIAL (J2250 PER 1MG) IV PRN ×7 (00:20→16:08)
[2021-04-25] MEDS: HumaLOG INSULIN (NovoLOG) PER UNIT SC SCH ×4 (00:20→17:29)
[2021-04-25] MEDS: HYDROCORTISONE 100 MG/2 ML VIAL (J1720 PER 1) IV SCH ×3 (02:29→17:25)
[2021-04-25] MEDS: propofoL 1,000 MG in IV 1 EA IV SCH ×4 (03:18→22:29)
[2021-04-25] MEDS: fentaNYL 100 MCG/2 ML INJECTION IV PRN (04:16)
[2021-04-25] MEDS: METOCLOPRAMIDE INJ 10MG/2ML VIAL (J2765 PER 1) IV SCH ×4 (04:36→23:05)
[2021-04-25] MEDS: VALPROATE SOD INJ 500 MG in D5W 50 ML IV SCH ×2 (04:36→16:08)
[2021-04-25 05:15] LABS: BASO % 0.4 % (0.0-1.0); HEMATOCRIT 37.6 % (42.0-52.0); HEMOGLOBIN 12.8 g/dl (13.5-17.5); LYMPH # 0.7 10^3/uL (1.5-5.0); LYMPH % 9.1 % (24.0-44.0); MEAN CORPUSCULAR HEMOGLOBIN 29.3 pg (27.0-33.0); MONO # 1.2 10^3/uL (0.0-0.8); MONO % 14.5 % (2.0-8.0); NEUTROPHILS # 5.7 10^3/uL (1.5-8.5); NEUTROPHILS % 71.5 % (36.0-66.0); RED BLOOD COUNT 4.37 10^6/uL (4.30-6.10)
[2021-04-25 05:16] LABS: PLATELET COUNT, AUTOMATED 65 10^3/uL (150-450)
[2021-04-25 05:41] LABS: ALBUMIN 1.5 GM/DL (3.2-5.2); ALT/SGPT 23 U/L (12-78); BILIRUBIN,TOTAL 0.6 MG/DL (0.2-1.0); BLOOD UREA NITROGEN 25 MG/DL (7-18); CARBON DIOXIDE LEVEL 26 MEQ/L (21-32); CHLORIDE LEVEL 115 MEQ/L (98-107); CHOLESTEROL LEVEL 110 MG/DL (< 200); CPK CREATINE PHOSPHOKINASE 62 U/L (39-308); CREATININE FOR GFR 0.64 MG/DL (0.70-1.30); GLOMERULAR FILTRATION RATE > 60.0 (>49); GLUCOSE, FASTING 201 MG/DL (70-100); LDH LACTATE DEHYDROGENASE 303 U/L (87-241); PHOSPHORUS LEVEL 2.8 MG/DL (2.5-4.9); POTASSIUM SERUM 3.1 MEQ/L (3.5-5.1); SODIUM LEVEL 148 MEQ/L (136-145); TOTAL PROTEIN 4.6 GM/DL (6.4-8.2); TRIGLYCERIDES LEVEL 768 MG/DL (<150)
[2021-04-25 06:16] LABS: ABG BASE EXCESS -0.5 (-2.0-2.0); ABG HCO3 20.9 MEQ/L (22.0-26.0); ABG PARTIAL PRESSURE CO2 26.1 mmHg (35.0-45.0); ABG STANDARD HCO3 24.1 MEQ/L (22.0-26.0); ABG TOTAL CO2 21.7 MEQ/L (23.0-31.0); ABG pH (ARTERIAL) 7.522 UNITS (7.350-7.450)
[2021-04-25] MEDS: LEVOTHYROXINE 75MCG TABLET (0.075MG) NG SCH (07:24)
[2021-04-25] MEDS: MEROPENEM INJ 1 GM in IV 1 EA IV SCH ×3 (07:24→21:04)
[2021-04-25 08:59] LABS: VALPROIC ACID (DEPAKOTE) 6.6 UG/ML (50.0-100.0)
[2021-04-25] MEDS ORDERED: POTASSIUM CHLORIDE 10% LIQ 20 MEQ/15 ML UDC PO ONE (09:00)
[2021-04-25] MEDS: PANTOPRAZOLE 40MG VIAL (C9113 PER 1) IV SCH (10:45)
[2021-04-25] MEDS: risperiDONE 0.5 MG TAB NG SCH ×2 (10:55→20:56)
[2021-04-25] MEDS: PARoxetine 10MG 5ML SUSP ORAL SYRINGE *DRAW UP EXACT DOSE NG SCH (10:55)
[2021-04-25] MEDS: KCL 20MEQ IN D5W 1000ML 1,000 ML IV SCH ×3 (10:57→22:58)
[2021-04-25] MEDS: CHLORHEXIDINE GLUCONATE 0.12 % 15ML UDC (PERIDEX ORAL RINSE) MT SCH ×2 (10:57→20:56)
[2021-04-25 11:10] LABS: ABG BASE EXCESS 3.6 (-2.0-2.0); ABG HCO3 25.4 MEQ/L (22.0-26.0); ABG O2 SATURATION 98.4 % (95.0-99.0); ABG PARTIAL PRESSURE CO2 30.4 mmHg (35.0-45.0); ABG PARTIAL PRESSURE O2 105.7 mmHg (75.0-100.0); ABG STANDARD HCO3 27.7 MEQ/L (22.0-26.0); ABG TOTAL CO2 26.3 MEQ/L (23.0-31.0)
[2021-04-25 15:33] LABS: BLOOD UREA NITROGEN 23 MG/DL (7-18); CALCIUM LEVEL 7.9 MG/DL (8.8-10.2); CARBON DIOXIDE LEVEL 29 MEQ/L (21-32); CHLORIDE LEVEL 115 MEQ/L (98-107); CREATININE FOR GFR 0.78 MG/DL (0.70-1.30); GLOMERULAR FILTRATION RATE > 60.0 (>49); GLUCOSE, FASTING 285 MG/DL (70-100); POTASSIUM SERUM 3.8 MEQ/L (3.5-5.1); SODIUM LEVEL 147 MEQ/L (136-145)
[2021-04-25] MEDS: AZITHROMYCIN INJ 500 MG, VIAL MATE ADAPTER 1 EACH in NS 250 ML IV SCH (17:25)
[2021-04-25] MEDS: NYSTATIN 100,000 UNITS/GM TOPICAL PWD 15 GM TOP SCH (20:57)
[2021-04-26] VITALS (22 sets, daily range): BP systolic 102–140; BP diastolic 56–82
[2021-04-26] MEDS: HumaLOG INSULIN (NovoLOG) PER UNIT SC SCH ×5 (00:18→23:11)
[2021-04-26] MEDS: HYDROCORTISONE 100 MG/2 ML VIAL (J1720 PER 1) IV SCH ×3 (01:12→18:04)
[2021-04-26] MEDS: MIDAZOLAM INJ 2MG/2ML VIAL (J2250 PER 1MG) IV PRN ×2 (03:33→23:05)
[2021-04-26] MEDS: VALPROATE SOD INJ 500 MG in D5W 50 ML IV SCH ×2 (03:34→16:42)
[2021-04-26 03:58] LABS: BASO % 0.4 % (0.0-1.0); HEMATOCRIT 38.3 % (42.0-52.0); HEMOGLOBIN 12.6 g/dl (13.5-17.5); LYMPH # 0.7 10^3/uL (1.5-5.0); LYMPH % 8.1 % (24.0-44.0); MEAN CORPUSCULAR HEMOGLOBIN 28.7 pg (27.0-33.0); MEAN CORPUSCULAR HGB CONC 32.9 g/dl (32.0-36.5); MEAN CORPUSCULAR VOLUME 87.2 fl (80.0-96.0); MONO # 1.2 10^3/uL (0.0-0.8); MONO % 13.5 % (2.0-8.0); NEUTROPHILS # 6.6 10^3/uL (1.5-8.5); RED BLOOD COUNT 4.39 10^6/uL (4.30-6.10); WHITE BLOOD COUNT 8.9 10^3/uL (4.0-10.0)
[2021-04-26 04:07] LABS: PLATELET COUNT, AUTOMATED 77 10^3/uL (150-450)
[2021-04-26] MEDS: METOCLOPRAMIDE INJ 10MG/2ML VIAL (J2765 PER 1) IV SCH ×4 (04:07→22:14)
[2021-04-26] MEDS: propofoL 1,000 MG in IV 1 EA IV SCH ×4 (04:13→18:32)
[2021-04-26 04:20] LABS: ALBUMIN 1.6 GM/DL (3.2-5.2); ALT/SGPT 21 U/L (12-78); BILIRUBIN,TOTAL 0.4 MG/DL (0.2-1.0); BLOOD UREA NITROGEN 18 MG/DL (7-18); CALCIUM LEVEL 7.3 MG/DL (8.8-10.2); CARBON DIOXIDE LEVEL 29 MEQ/L (21-32); CHLORIDE LEVEL 113 MEQ/L (98-107); CHOLESTEROL LEVEL 114 MG/DL (< 200); CPK CREATINE PHOSPHOKINASE 48 U/L (39-308); GLOMERULAR FILTRATION RATE > 60.0 (>49); GLUCOSE, FASTING 194 MG/DL (70-100); LDH LACTATE DEHYDROGENASE 260 U/L (87-241); PHOSPHORUS LEVEL 3.2 MG/DL (2.5-4.9); POTASSIUM SERUM 3.7 MEQ/L (3.5-5.1); SODIUM LEVEL 147 MEQ/L (136-145); TOTAL PROTEIN 4.7 GM/DL (6.4-8.2); TRIGLYCERIDES LEVEL 220 MG/DL (<150)
[2021-04-26] MEDS: MEROPENEM INJ 1 GM in IV 1 EA IV SCH ×3 (05:09→21:46)
[2021-04-26] MEDS: LEVOTHYROXINE 75MCG TABLET (0.075MG) NG SCH (05:09)
[2021-04-26 06:02] LABS: ABG BASE EXCESS 1.2 (-2.0-2.0); ABG HCO3 25.6 MEQ/L (22.0-26.0); ABG O2 SATURATION 98.3 % (95.0-99.0); ABG PARTIAL PRESSURE CO2 40.1 mmHg (35.0-45.0); ABG PARTIAL PRESSURE O2 128.7 mmHg (75.0-100.0); ABG STANDARD HCO3 25.5 MEQ/L (22.0-26.0); ABG TOTAL CO2 26.8 MEQ/L (23.0-31.0); ABG pH (ARTERIAL) 7.423 UNITS (7.350-7.450)
[2021-04-26] MEDS: PANTOPRAZOLE 40MG VIAL (C9113 PER 1) IV SCH (08:26)
[2021-04-26] MEDS: PARoxetine 10MG 5ML SUSP ORAL SYRINGE *DRAW UP EXACT DOSE NG SCH (08:26)
[2021-04-26] MEDS: CHLORHEXIDINE GLUCONATE 0.12 % 15ML UDC (PERIDEX ORAL RINSE) MT SCH ×2 (08:26→20:25)
[2021-04-26] MEDS: risperiDONE 0.5 MG TAB NG SCH ×2 (08:27→20:25)
[2021-04-26] MEDS: NYSTATIN 100,000 UNITS/GM TOPICAL PWD 15 GM TOP SCH ×2 (08:27→20:26)
[2021-04-26] MEDS: KCL 20MEQ IN D5W 1000ML 1,000 ML IV SCH (10:06)
[2021-04-26] MEDS: KCL 40MEQ IN D5/0.45NS 1000ML 1,000 ML IV SCH ×2 (12:25→18:35)
[2021-04-26] MEDS: AZITHROMYCIN INJ 500 MG, VIAL MATE ADAPTER 1 EACH in NS 250 ML IV SCH (18:04)
[2021-04-27] VITALS (13 sets, daily range): BP systolic 101–126; BP diastolic 55–67
[2021-04-27] MEDS: propofoL 1,000 MG in IV 1 EA IV SCH ×3 (00:35→11:41)
[2021-04-27] MEDS: KCL 40MEQ IN D5/0.45NS 1000ML 1,000 ML IV SCH ×2 (00:36→10:35)
[2021-04-27] MEDS: HYDROCORTISONE 100 MG/2 ML VIAL (J1720 PER 1) IV SCH ×2 (01:15→10:28)
[2021-04-27] MEDS: fentaNYL 100 MCG/2 ML INJECTION IV PRN ×2 (03:01→11:07)
[2021-04-27] MEDS: VALPROATE SOD INJ 500 MG in D5W 50 ML IV SCH (03:01)
[2021-04-27] MEDS: MIDAZOLAM INJ 2MG/2ML VIAL (J2250 PER 1MG) IV PRN ×2 (04:06→08:26)
[2021-04-27] MEDS: METOCLOPRAMIDE INJ 10MG/2ML VIAL (J2765 PER 1) IV SCH ×4 (04:06→21:57)
[2021-04-27 04:19] LABS: ALBUMIN 1.5 GM/DL (3.2-5.2); ALT/SGPT 20 U/L (12-78); BILIRUBIN,TOTAL 0.4 MG/DL (0.2-1.0); BLOOD UREA NITROGEN 15 MG/DL (7-18); CALCIUM LEVEL 7.2 MG/DL (8.8-10.2); CARBON DIOXIDE LEVEL 26 MEQ/L (21-32); CHLORIDE LEVEL 110 MEQ/L (98-107); CHOLESTEROL LEVEL 120 MG/DL (< 200); CPK CREATINE PHOSPHOKINASE 41 U/L (39-308); CREATININE FOR GFR 0.54 MG/DL (0.70-1.30); GLOMERULAR FILTRATION RATE > 60.0 (>49); GLUCOSE, FASTING 217 MG/DL (70-100); LDH LACTATE DEHYDROGENASE 275 U/L (87-241); PHOSPHORUS LEVEL 2.7 MG/DL (2.5-4.9); POTASSIUM SERUM 4.5 MEQ/L (3.5-5.1); SODIUM LEVEL 142 MEQ/L (136-145); TOTAL PROTEIN 4.6 GM/DL (6.4-8.2); TRIGLYCERIDES LEVEL 209 MG/DL (<150)
[2021-04-27] MEDS: MEROPENEM INJ 1 GM in IV 1 EA IV SCH ×2 (05:24→14:00)
[2021-04-27] MEDS: LEVOTHYROXINE 75MCG TABLET (0.075MG) NG SCH (05:24)
[2021-04-27] MEDS: HumaLOG INSULIN (NovoLOG) PER UNIT SC SCH ×2 (05:33→12:00)
[2021-04-27 06:13] LABS: ABG BASE EXCESS 0.6 (-2.0-2.0); ABG HCO3 22.5 MEQ/L (22.0-26.0); ABG O2 SATURATION 97.4 % (95.0-99.0); ABG PARTIAL PRESSURE CO2 28.4 mmHg (35.0-45.0); ABG PARTIAL PRESSURE O2 87.3 mmHg (75.0-100.0); ABG TOTAL CO2 23.3 MEQ/L (23.0-31.0); ABG pH (ARTERIAL) 7.516 UNITS (7.350-7.450)
[2021-04-27] MEDS ORDERED: VALPROATE SOD INJ 500 MG in D5W MINI-BAG PLUS 50 ML IV SCH ×2 (08:44→16:00)
[2021-04-27 09:19] LABS: BASO % 0.4 % (0.0-1.0); EOS % 0.1 % (0.0-3.0); HEMATOCRIT 36.6 % (42.0-52.0); HEMOGLOBIN 12.2 g/dl (13.5-17.5); LYMPH % 12.7 % (24.0-44.0); MEAN CORPUSCULAR HEMOGLOBIN 28.8 pg (27.0-33.0); MEAN CORPUSCULAR HGB CONC 33.3 g/dl (32.0-36.5); MEAN CORPUSCULAR VOLUME 86.5 fl (80.0-96.0); MONO # 0.9 10^3/uL (0.0-0.8); MONO % 11.2 % (2.0-8.0); NEUTROPHILS # 5.6 10^3/uL (1.5-8.5); NEUTROPHILS % 71.9 % (36.0-66.0); RED BLOOD COUNT 4.23 10^6/uL (4.30-6.10); WHITE BLOOD COUNT 7.8 10^3/uL (4.0-10.0)
[2021-04-27 09:32] LABS: PLATELET COUNT, AUTOMATED 95 10^3/uL (150-450)
[2021-04-27] MEDS: CHLORHEXIDINE GLUCONATE 0.12 % 15ML UDC (PERIDEX ORAL RINSE) MT SCH (10:28)
[2021-04-27] MEDS: PARoxetine 10MG 5ML SUSP ORAL SYRINGE *DRAW UP EXACT DOSE NG SCH (10:28)
[2021-04-27] MEDS: PANTOPRAZOLE 40MG VIAL (C9113 PER 1) IV SCH (10:28)
[2021-04-27] MEDS: NYSTATIN 100,000 UNITS/GM TOPICAL PWD 15 GM TOP SCH ×2 (10:29→22:05)
[2021-04-27] MEDS: risperiDONE 0.5 MG TAB NG SCH (10:29)
[2021-04-27] MEDS ORDERED: ACETAMINOPHEN 650 MG SUPP PR PRN (12:55)
[2021-04-27] MEDS ORDERED: NS 1,000 ML IV SCH (12:55)
[2021-04-27] MEDS ORDERED: SCOPOLAMINE 1MG TRANSDERMAL PATCH TOP PRN (12:55)
[2021-04-27] MEDS ORDERED: ONDANSETRON 4MG/2ML VIAL IV PRN (12:55)
[2021-04-27] MEDS ORDERED: MORPHINE 10MG/0.5ML ORAL CONCENTRATE SOLUTION U/D SL PRN (12:55)
[2021-04-27] MEDS: MORPHINE 2 MG/ML 1ML VIAL (J2270) IV PRN ×2 (13:27→22:05)
[2021-04-27] MEDS ORDERED: LORazepam 2 MG/ML VIAL As Ordered ONE ×2 (14:14→17:55)
[2021-04-27] MEDS: LORazepam 2 MG/ML VIAL IV PRN ×2 (14:17→17:59)
[2021-04-28] MEDS: MORPHINE 2 MG/ML 1ML VIAL (J2270) IV PRN ×4 (04:27→21:43)
[2021-04-28] MEDS: METOCLOPRAMIDE INJ 10MG/2ML VIAL (J2765 PER 1) IV SCH ×4 (04:27→21:43)
[2021-04-28] MEDS: NYSTATIN 100,000 UNITS/GM TOPICAL PWD 15 GM TOP SCH ×2 (08:15→21:36)
[2021-04-28] MEDS: HYOSCYAMINE SULFATE 0.125 MG SUBL TABLET PO PRN (13:40)
[2021-04-28] MEDS: LORazepam 2 MG/ML VIAL IV PRN (19:08)
[2021-04-29] MEDS: HYOSCYAMINE SULFATE 0.125 MG SUBL TABLET PO PRN (00:32)
[2021-04-29] MEDS ORDERED: LORazepam 2 MG/ML VIAL As Ordered ONE (05:25)
[2021-04-29] MEDS: LORazepam 2 MG/ML VIAL IV PRN (05:28)
[2021-04-29] MEDS: METOCLOPRAMIDE INJ 10MG/2ML VIAL (J2765 PER 1) IV SCH (05:28)
== END 2021-04-29 11:20 | disposition expired | DRG 870 ==
LOC: M ED 22:02 → M ED INP 04-19 07:42 → EEVIPCON 04-19 07:42 → ENRESERV 04-19 08:24 → M PCU 04-19 09:29 → M MS5PR 04-27 18:30
PROVIDERS: ADMIT Internal Medicine Nephrology; ATTEND Family Medicine
PROC: 5A1955Z Respiratory Ventilation, Greater than 96 Consecutive Hours (ICD-10-PCS; principal; 2021-04-19)
PROC: 04HL33Z Insertion of Infusion Device into Left Femoral Artery, Percutaneous Approach (ICD-10-PCS; 2021-04-19)
PROC: 30233N1 Transfusion of Nonautologous Red Blood Cells into Peripheral Vein, Percutaneous Approach (ICD-10-PCS; 2021-04-22)
PROC: 02HV33Z Insertion of Infusion Device into Superior Vena Cava, Percutaneous Approach (ICD-10-PCS; 2021-04-22)
PROC: 30233R1 Transfusion of Nonautologous Platelets into Peripheral Vein, Percutaneous Approach (ICD-10-PCS; 2021-04-23)
DX: A41.9 Sepsis, unspecified organism (principal); R65.21 Severe sepsis with septic shock; J69.0 Pneumonitis due to inhalation of food and vomit; J96.01 Acute respiratory failure with hypoxia; E87.2 Acidosis; C15.9 Malignant neoplasm of esophagus, unspecified; N17.9 Acute kidney failure, unspecified; E87.0 Hyperosmolality and hypernatremia; I69.351 Hemiplegia and hemiparesis following cerebral infarction affecting right dominant side; F71 Moderate intellectual disabilities; D69.6 Thrombocytopenia, unspecified; E87.6 Hypokalemia; R13.10 Dysphagia, unspecified; Z66 Do not resuscitate; Z92.21 Personal history of antineoplastic chemotherapy; Z51.5 Encounter for palliative care; Z79.82 Long term (current) use of aspirin; Z79.899 Other long term (current) drug therapy; Z88.8 Allergy status to other drugs, medicaments and biological substances; E78.5 Hyperlipidemia, unspecified; E03.9 Hypothyroidism, unspecified; R29.6 Repeated falls; K21.9 Gastro-esophageal reflux disease without esophagitis; F31.9 Bipolar disorder, unspecified; I25.10 Atherosclerotic heart disease of native coronary artery without angina pectoris; I10 Essential (primary) hypertension; I95.1 Orthostatic hypotension; R91.8 Other nonspecific abnormal finding of lung field; D64.9 Anemia, unspecified; B37.2 Candidiasis of skin and nail